=== PATIENT | male | born 1945 | race Caucasian/White ===

== ENCOUNTER 2019-10-07 06:00 | Outpatient (CLI) | payer MEDICARE, BC, SELFPAY ==
--- NOTE | 2019-10-09 12:05 | ONC CON_ITS ---
Dr. Mott New Patient Note Patient: Farhad Miller Unit #: [id number]: 1945 Dicatated By: Jhony Mott M.D.Date of Visit: Oct 07, 2019 Onc MED New Patient/Consult Referring Physician: Dr. BART KANG M.D. Chief Complaint: Anemia and leukopenia. History of Present Illness: This is a 74-year-old man with mild anemia and leukopenia. He has a history of having been treated for systemic lupus sometime back in the late . His other medical illnesses include hypertension, hyperlipidemia, chronic kidney disease, and mitral valve prolapse. He also has a history of nephrolithiasis. He had presented with multiple complaints including persistent sinus drainage and cough, shortness of breath, and weakness/fatigue, among others. His laboratory studies from 09/23/2019 included CBC showing hemoglobin 11.7 g with hematocrit 36.7%. The red cell indices were normal. The white blood cell count was low at 2700 with absolute neutrophil count 1600. Platelet count was 142,000. Comprehensive metabolic profile showed elevated BUN and creatinine at 30 and 1.28 mg/dL. Albumin was slightly low at 3.4 g/dL. Bilirubin and liver enzymes were normal. His repeat CBC on 09/29/2019 included serum iron low at 32 mcg/dL with transferrin saturation 14% and ferritin level significantly elevated at 1405 ng/mL. Protein electrophoresis showed inflammatory changes with no monoclonal protein detected. He has not been feeling good since at least June, with his main complaints being constant sinus drainage and cough. He actually thinks the illness may have started as far back as March, when he and his had traveled to [facility]. He says that he and his were both sick the whole time they were there. He seemed to have been getting better, but sometime in the latter part of June he began having the persistent, clear sinus drainage and nonproductive cough. The cough has been worse when he is lying flat. He complains of being very short of breath and weak. He says he mostly just sits around and sleeps. His ECOG score is 3. He complains of poor appetite. He says that everything tastes terrible. He is eating, though, and his weight thus far has been stable. He has not had fever. He has had chills and night sweating, at least 3 or 4 times a week. He says he has had a weird sore throat, and he has had pain in the left TM joint. He has not had chest pain. He sometimes coughs to the point that he vomits. He otherwise is not having nausea. He has had acid reflux. He has had no problems with bowel function. Tends to have small volume voids, but bladder function has otherwise been okay. He has chronic back pain. His hands tender get sore, particularly when he first gets up in the morning. He does not complain of headache. He sometimes gets dizzy or lightheaded. He has no focal neurologic symptoms. Past Medical History: His medical history includes benign prostatic hypertrophy, dyslipidemia, gastroesophageal reflux disease, history of nephrolithiasis, history of systemic lupus erythematosus, hyperlipidemia, hypertension, and mitral valve prolapse. Past Surgical History: His surgical/procedural history includes bilateral cataract excisions in 2019, left total knee arthroplasty in 2018, left hand surgery in 2016, right shoulder surgery for bone spur in 2013, arthroscopic left knee surgery in 2007, and lumbar spine surgery in 2001. Medications: Glucosamine-Chondroitin Tablet Oral b.i.d., hydroCHLOROthiazide (25 mg) Tablet Oral daily, Lovastatin (20 mg) Tablet Oral ac pm, Tamsulosin HCl 2 Tablet (of 0.4 mg) Capsule Oral daily, Turmeric (450 mg) Capsule Oral b.i.d. Allergies: No Known Allergies. Social History: Mr. Miller is . Mr. Miller quit smoking 25 years ago but had smoked 3.0 packs/day for 25 years. He is a former drinker. He is retired from the [employer]. He has a history of smoking for 25 years, up to 3 packs of cigarettes daily. He quit smoking in 1994. He does not drink alcohol. He has had some alcohol use in the past, but never heavy. Family History: Mr. Miller's father is . Father of lung cancer at age 65. Mother still living at age 93. She has diabetes. A brother and 2 sisters are in good health. Review Of Symptoms: Constitutional - His energy is very low. He is mostly in bed. He is appetite is poor but he is eating and he states his weight is stable. No fever. He is having chills and night sweating. ECOG score is 3, Eyes - He had recent cataract surgery, ENMT - He reports having hearing loss and tinnitus. He has some sinus congestion/drainage. No mouth sores. His throat has been sore and he's had some difficulty swallowing, Hematologic/Lymphatic - No abnormal bruising or bleeding, Respiratory - He has shortness of breath at rest and with activity. He has a cough, which is non-productive and worse when he is lying down. No pleuritic pain or hemoptysis, Cardiovascular - No angina pain. No palpitations, Gastrointestinal - No nausea or vomiting. No heartburn or acid reflux. No diarrhea or constipation. No blood in the stool or black stools, Genitourinary (M) - He has small volume voids, but no dysuria or hematuria, no urinary frequency, and no urgency or incontinence, Musculoskeletal - He has some joint pain, mainly in his hands, and he has chronic back pain, Integumentary - He has a skin eruption in the facial area, Neurologic - No headache. He has occasional episodes of dizziness. No numbness/paresthesias or other focal neurologic symptoms, Psychiatric - He has some hopelessness with his current health issues. He has difficulty sleeping. Vital Signs: Vital signs include blood pressure 131/59, pulse 67, respirations 18, temp 98.3 degrees, and oxygen saturation 93%. Height 71 inches with weight 185 pounds. Physical Examination: Constitutional - He appears somewhat weak generally, Eyes - Sclerae nonicteric. Conjunctivae clear, ENMT - No lesions noted in the oral cavity, Neck - No mass or thyromegaly, Hematologic/Lymphatic - No cervical, clavicular, or axillary adenopathy, Respiratory - Lungs sound clear. There is pretty good air movement bilaterally, Cardiovascular - Heart rhythm is regular. There is no murmur, gallop, or rub noted, Abdomen - Soft and non-tender. Liver and spleen are not enlarged. There is no abdominal mass or ascites noted and there is no inguinal adenopathy, Back/Spine - No spine or CVA tenderness noted, Extremities - No edema. Pedal pulses are palpable bilaterally, Integumentary - There is a mild skin eruption in the facial area. It appears consistent with seborrhea. There are no suspicious skin lesions noted, Neurologic - No focal neurologic deficits noted. Impression: 1. Patient with mild anemia and moderately severe leukopenia. The cause is uncertain. I suspect this may be a component of an inflammatory process, as he has a significantly elevated serum ferritin level in association with a normal transferrin saturation. Myelodysplastic syndrome but also be another consideration, and B12 deficiency also needs to be excluded. 2. He has persistent sinus drainage with nonproductive cough and shortness of breath. 3. He has multiple other nonspecific complaints including fatigue, dysguesia, and night sweating. 4. He has a history of having been treated for systemic lupus erythematosus in the late . His other medical illnesses include: 5. Hypertension. 6. Dyslipidemia. 7. Mitral valve prolapse. 8. GERD. 9. Benign prostatic hypertrophy. 10. History of nephrolithiasis. Plan: The laboratory findings and clinical implications were reviewed with the patient. The cause of the anemia and leukopenia is uncertain, but the significantly elevated serum ferritin and the normal transferrin saturation is suspicious for an underlying inflammatory process. At place initially I am going to obtain additional laboratory studies to include a repeat CBC and comprehensive metabolic profile along with sed rate, CRP level, SHERI screen, LDH level, B12 level, and repeat serum iron studies. As a precaution, I am going to go ahead and check an HFE gene analysis. I will schedule a CT pulmonary angiogram and a sinus CT study. He will have further evaluation as indicated. I suspect that he will need to be seen by a senior web developer. Signed By: Jhony Mott M.D. <<Signature on File>>
== END 2019-10-07 06:01 | disposition home or self-care (01) ==
LOC: ONCMED 13:49
PROVIDERS: Family Provider Nurse Practitioner Family; Visit Provider Internal Medicine Medical Oncology
DX: D64.9 Anemia, unspecified (principal); D72.819 Decreased white blood cell count, unspecified; R53.83 Other fatigue; R05 Cough; R06.02 Shortness of breath; I12.9 Hypertensive chronic kidney disease with stage 1 through stage 4 chronic kidney disease, or unspecified chronic kidney disease; E78.5 Hyperlipidemia, unspecified; N18.9 Chronic kidney disease, unspecified; I34.1 Nonrheumatic mitral (valve) prolapse; G89.29 Other chronic pain; M54.9 Dorsalgia, unspecified; N40.0 Benign prostatic hyperplasia without lower urinary tract symptoms; K21.9 Gastro-esophageal reflux disease without esophagitis; L21.9 Seborrheic dermatitis, unspecified; Z79.899 Other long term (current) drug therapy; Z96.652 Presence of left artificial knee joint; Z87.442 Personal history of urinary calculi; Z87.891 Personal history of nicotine dependence
CPT/HCPCS: 99205

== ENCOUNTER 2019-10-16 11:20 | Outpatient (CLI) | payer MEDICARE, BC, SELFPAY ==
[2019-10-16 15:24] LABS: Add Urine Microscopic? YES; Bilirubin Urine Neg (NEGATIVE); Blood Urine 2+ (Negative); Glucose Urine UA Norm (Normal); Ketones Urine Negative (Negative); Leukocyte Esterase Urine Negative (Negative); Nitrate Urine Negative (Negative); Protein Urine 3+ (Negative); Specific Gravity, Urine 1.025 (1.005-1.030); Urine Appearance Clear (CLEAR); Urine Color Yellow (Yellow); Urobilinogen Urine Norm (Negative); pH Urine 5 (5-7)
[2019-10-16 15:32] LABS: Eosinophils # 0.1 10^3/uL (0.0-0.8); Eosinophils % 2.2 %; Hematocrit 30.6 % (42.0-52.0); Hemoglobin 9.7 g/dL (11.7-16.6); Lymphocytes # 0.6 10^3/uL (0.8-4.8); Lymphocytes % 23.6 %; Mean Corpuscular HGB Conc 31.7 g/dL (30.0-36.0); Mean Corpuscular Hemoglobin 27.3 pg (28.0-34.0); Mean Corpuscular Volume 86.2 fL (80-94); Mean Platelet Volume 13.4 fL (7.4-10.4); Monocytes # 0.2 10^3/uL (0.2-0.9); Monocytes % 6.7 %; Neutrophils # 1.8 10^3/uL (1.8-7.7); Neutrophils % 67.1 %; Nucleated Red Blood Cells % 0 %; Platelet Count 101 10^3/cmm (130-400); Red Blood Count 3.55 10^6/uL (4.1-5.3); Red Cell Distribution Width 13.2 % (12.1-15.1); White Blood Count 2.7 10^3/uL (4.0-10.0)
[2019-10-16 15:54] LABS: Alanine Aminotransferase 23 U/L (0-41); Albumin Level 2.9 g/dL (3.5-5.2); Alkaline Phosphatase 71 IU/L (40-130); Anion Gap 15.7 (5-19); Aspartate Amino Transferase 35 U/L (0-40); Blood Urea Nitrogen 17 mg/dL (8-23); C Reactive Protein 35.4 mg/L (0.0-4.9); Calcium 8.9 mg/dL (8.5-10.5); Carbon Dioxide 24 mmol/L (22-29); Chloride 102 mmol/L (98-107); Globulin 2.6 g/dL (1.3-4.6); Glucose 75 mg/dL (65-115); Osmolality Calculated 281 mOsm/kg (285-295); Potassium 3.7 mmol/L (3.5-5.1); Sodium 138 mmol/L (136-145); Total Bilirubin 0.3 mg/dL (0.15-1.2); Total Protein 5.5 g/dL (6.6-8.7)
[2019-10-16 15:57] LABS: Urine Creatinine 475 mg/dL (39-259)
[2019-10-16 16:21] LABS: Urine Protein Random 205 mg/dL
[2019-10-16 16:29] LABS: Bacteria Urine 1+; RBC Urine 0-4 /hpf (0-2); Squamous Epithelial Cell Urine 0-4 (0-5); WBC Urine 0-4 /hpf (0-5)
[2019-10-16 16:30] LABS: Add Urine Culture? No; Hyaline Casts Urine 0-4; Other Casts Urine WBC CAST /lpf
[2019-10-16 16:47] LABS: Erythrocyte Sedimentation Rate 61 mm/hr (0-10)
[2019-10-17 09:26] LABS: COMPLEMENT, TOTAL (CH50) 59 U/mL (31-60)
[2019-10-17 11:17] LABS: COMPLEMENT COMPONENT C3C 81 mg/dL (82-185); COMPLEMENT COMPONENT C4C 17 mg/dL (15-53)
[2019-10-17 12:37] LABS: CENTROMERE B ANTIBODY <1.0 NEG AI (<1.0 NEG); JO-1 ANTIBODY <1.0 NEG AI (<1.0 NEG); RNP ANTIBODY <1.0 NEG AI (<1.0 NEG); SCL-70 ANTIBODY <1.0 NEG AI (<1.0 NEG); SJOGREN'S ANTIBODY (SS-A) <1.0 NEG AI (<1.0 NEG); SM ANTIBODY <1.0 NEG AI (<1.0 NEG)
[2019-10-17 13:07] LABS: THYROID PEROXIDASE ANTIBODIES <1 IU/mL (<9)
[2019-10-17 15:46] LABS: ANA PATTERN Nuclear, Homogeneous; ANA SCREEN, IFA POSITIVE (NEGATIVE); ANA TITER > OR = 1:1280 titer
[2019-10-20 00:15] LABS: DNA AB (DS) CRITHIDIA,IFA POSITIVE (NEGATIVE)
== END 2019-10-16 11:21 | disposition home or self-care (01) ==
LOC: ONCMED 16:08
PROVIDERS: Family Provider Nurse Practitioner Family; Visit Provider Internal Medicine Medical Oncology
DX: M32.9 Systemic lupus erythematosus, unspecified (principal); D64.9 Anemia, unspecified; D72.819 Decreased white blood cell count, unspecified
CPT/HCPCS: 80053; 81001; 82570; 84156; 85025; 85651; 86140

== ENCOUNTER 2019-11-19 10:43 | Outpatient (CLI) | payer MEDICARE, BC, SELFPAY ==
--- NOTE | 2019-11-19 10:51 | XR_ITS ---
WS: [id number] ELBOW RIGHT TECHNIQUE: 2 views of the right elbow CLINICAL INFORMATION: inflammatory arthritis COMPARISON: None. FINDINGS: Mild degenerative arthritis right elbow. No acute fractures. Mild hypertrophic spurring. Small olecra non enthesophyte. No significant joint effusion. XR/XR elbow RT 2V [id number] IMPRESSION: Mild degenerative arthritis right elbow. No significant joint effusion.
--- NOTE | 2019-11-19 10:51 | XR_ITS ---
WS: [id number] FOOT LEFT TECHNIQUE: 3 views of the left foot CLINICAL INFORMATION: inflammatory arthritis COMPARISON: None. FINDINGS: Mild osteopenia. Hammertoe deformities. Normal metatarsals. No acute fractures. A few small erosions involving the metatarsal heads. Joint space narrowing involving the PIP and DIP joints. XR/XR foot LT min 3V* [id number] IMPRESSION: A few small erosions involving the metatarsal heads.
--- NOTE | 2019-11-19 10:51 | XR_ITS ---
WS: [id number] HAND RIGHT TECHNIQUE: 3 views of the right hand CLINICAL INFORMATION: inflammatory arthritis COMPARISON: None. FINDINGS: Mild narrowing of the radiocarpal joint. Normal scaphoid and lunate. Degenerative arthritis the first CMC. Mild joint space narrowing involving the second and third MCP. A few small erosions involving t he metacarpal heads. XR/XR hand RT min 3V* [id number] IMPRESSION: Mild joint space narrowing involving the second and third MCP. A few small eros ions involving the metacarpal heads.
--- NOTE | 2019-11-19 10:51 | XR_ITS ---
WS: [id number] HAND LEFT TECHNIQUE: 3 views of the left hand CLINICAL INFORMATION: inflammatory arthritis COMPARISON: None. FINDINGS: Mild to moderate narrowing of the radiocarpal joint. Normal scaphoid and lunate. Degenerative arthrit is the first CMC and STT. Mild joint space narrowing involving the first MCP. Mild degenerative narro wing involving the second MCP. A few small erosions involving the metacarpal heads. XR/XR hand LT min 3V* [id number] IMPRESSION: A few small erosions involving the metacarpal heads worse involving the first second and third metacarpals.
--- NOTE | 2019-11-19 10:51 | XR_ITS ---
WS: [id number] FOOT RIGHT TECHNIQUE: 3 views of the right foot CLINICAL INFORMATION: inflammatory arthritis COMPARISON: None. FINDINGS: Mild osteopenia. Hammertoe deformities. Normal metatarsals. No acute fractures. A few small erosions involving the metatarsal heads. Joint space narrowing involving the PIP and DIP joints. Tiny Achilles insertion enthesophyte. XR/XR foot RT min 3V* [id number] IMPRESSION: A few small erosions involving the metatarsal heads. Tiny Achilles insertion en thesophyte.
== END 2019-11-19 10:44 | disposition home or self-care (01) ==
LOC: RADWPI 10:49
PROVIDERS: Family Provider Nurse Practitioner Family; PCP Physician Assistant Medical; Visit Provider Internal Medicine Rheumatology
DX: M32.9 Systemic lupus erythematosus, unspecified (principal); Z79.899 Other long term (current) drug therapy; M85.842 Other specified disorders of bone density and structure, left hand; M85.841 Other specified disorders of bone density and structure, right hand; M85.872 Other specified disorders of bone density and structure, left ankle and foot; M85.871 Other specified disorders of bone density and structure, right ankle and foot; M19.021 Primary osteoarthritis, right elbow
CPT/HCPCS: 36415; 73070; 73130; 73630; 80076; 81001; 82306; 82565; 82570; 84156; 85025; 85651; 86140; 86160

== ENCOUNTER → 2019-12-08 13:54 | Outpatient (BNVA) | payer MEDICARE, BC, SELFPAY | PROVIDERS: Family Provider Nurse Practitioner Family; PCP Physician Assistant Medical; Visit Provider Internal Medicine Rheumatology | DX: M32.9 Systemic lupus erythematosus, unspecified (principal); M32.19 Other organ or system involvement in systemic lupus erythematosus; Z79.899 Other long term (current) drug therapy; N18.3 Chronic kidney disease, stage 3 (moderate); M19.90 Unspecified osteoarthritis, unspecified site; D69.6 Thrombocytopenia, unspecified; D64.9 Anemia, unspecified; D72.810 Lymphocytopenia; Z79.52 Long term (current) use of systemic steroids | CPT/HCPCS: 99214 ==

== ENCOUNTER → 2020-01-12 10:37 | Outpatient (BNVA) | payer MEDICARE, BC, SELFPAY | PROVIDERS: Family Provider Nurse Practitioner Family; PCP Physician Assistant Medical; Visit Provider Internal Medicine | DX: Z79.899 Other long term (current) drug therapy (principal); M32.19 Other organ or system involvement in systemic lupus erythematosus | CPT/HCPCS: 36415; 80076; 81001; 82565; 82570; 83010; 83615; 84156; 85025; 85651 ==

== ENCOUNTER → 2020-03-01 09:43 | Outpatient (BNVA) | payer MEDICARE, BC, SELFPAY | PROVIDERS: Family Provider Nurse Practitioner Family; PCP Physician Assistant Medical; Visit Provider Internal Medicine Rheumatology | DX: Z79.899 Other long term (current) drug therapy (principal); M32.9 Systemic lupus erythematosus, unspecified | CPT/HCPCS: 36415; 80076; 81001; 82565; 82570; 84156; 85025; 85651; 86140 ==

== ENCOUNTER → 2020-03-15 09:52 | Outpatient (BNVA) | payer MEDICARE, BC, SELFPAY | PROVIDERS: Family Provider Nurse Practitioner Family; PCP Physician Assistant Medical; Visit Provider Internal Medicine Rheumatology | DX: M32.19 Other organ or system involvement in systemic lupus erythematosus (principal); Z79.899 Other long term (current) drug therapy; N18.3 Chronic kidney disease, stage 3 (moderate); R76.8 Other specified abnormal immunological findings in serum; M19.90 Unspecified osteoarthritis, unspecified site; D72.810 Lymphocytopenia; D64.9 Anemia, unspecified; D69.6 Thrombocytopenia, unspecified; Z79.52 Long term (current) use of systemic steroids; M32.9 Systemic lupus erythematosus, unspecified | CPT/HCPCS: 99214 ==

== ENCOUNTER → 2020-06-02 10:02 | Outpatient (BNVA) | payer MEDICARE, BC, SELFPAY | PROVIDERS: Family Provider Nurse Practitioner Family; PCP Physician Assistant Medical; Visit Provider Internal Medicine Rheumatology | DX: M32.19 Other organ or system involvement in systemic lupus erythematosus (principal); Z79.899 Other long term (current) drug therapy | CPT/HCPCS: 36415; 80076; 81001; 82565; 82570; 84156; 85025; 85651; 86140; 87086 ==

== ENCOUNTER → 2020-07-05 11:21 | Outpatient (BNVA) | payer MEDICARE, BC, SELFPAY | PROVIDERS: Family Provider Nurse Practitioner Family; PCP Physician Assistant Medical; Visit Provider Internal Medicine Rheumatology | DX: M32.19 Other organ or system involvement in systemic lupus erythematosus (principal); M19.90 Unspecified osteoarthritis, unspecified site; Z79.899 Other long term (current) drug therapy; N18.30 Chronic kidney disease, stage 3 unspecified; D64.9 Anemia, unspecified; Z87.891 Personal history of nicotine dependence | CPT/HCPCS: 99214 ==

== ENCOUNTER → 2020-10-06 08:37 | Outpatient (BNVA) | payer MEDICARE, BC, SELFPAY | PROVIDERS: Family Provider Nurse Practitioner Family; PCP Physician Assistant Medical; Referring Provider Internal Medicine Nephrology; Visit Provider Urology | DX: Z12.5 Encounter for screening for malignant neoplasm of prostate (principal); R33.9 Retention of urine, unspecified; N40.1 Benign prostatic hyperplasia with lower urinary tract symptoms; R35.1 Nocturia; R30.0 Dysuria; N18.30 Chronic kidney disease, stage 3 unspecified | CPT/HCPCS: 81003; G0103 ==

== ENCOUNTER → 2020-11-23 10:45 | Outpatient (BNVA) | payer MEDICARE, BC, SELFPAY | PROVIDERS: Family Provider Nurse Practitioner Family; PCP Physician Assistant Medical; Visit Provider Internal Medicine Rheumatology | DX: M32.19 Other organ or system involvement in systemic lupus erythematosus (principal); R76.8 Other specified abnormal immunological findings in serum; Z79.899 Other long term (current) drug therapy; M19.90 Unspecified osteoarthritis, unspecified site; Z87.891 Personal history of nicotine dependence | CPT/HCPCS: 99214 ==

== ENCOUNTER → 2021-01-06 10:23 | Outpatient (BNVA) | payer MEDICARE, BC, SELFPAY | PROVIDERS: Family Provider Nurse Practitioner Family; PCP Physician Assistant Medical; Visit Provider Urology | DX: N40.1 Benign prostatic hyperplasia with lower urinary tract symptoms (principal) | CPT/HCPCS: 81003 ==

== ENCOUNTER → 2021-03-23 13:52 | Outpatient (BNVA) | payer MEDICARE, BC, SELFPAY | PROVIDERS: Family Provider Nurse Practitioner Family; PCP Physician Assistant Medical; Visit Provider Internal Medicine Rheumatology | DX: M32.19 Other organ or system involvement in systemic lupus erythematosus (principal); R76.8 Other specified abnormal immunological findings in serum; Z79.899 Other long term (current) drug therapy | CPT/HCPCS: 36415; 80076; 81001; 82565; 82570; 84156; 85025; 86140; 86160 ==

== ENCOUNTER → 2021-03-31 09:26 | Outpatient (BNVA) | payer MEDICARE, BC, SELFPAY | PROVIDERS: Family Provider Nurse Practitioner Family; PCP Physician Assistant Medical; Visit Provider Internal Medicine Rheumatology | DX: M32.19 Other organ or system involvement in systemic lupus erythematosus (principal); Z79.899 Other long term (current) drug therapy; M19.90 Unspecified osteoarthritis, unspecified site; Z71.89 Other specified counseling; Z87.891 Personal history of nicotine dependence | CPT/HCPCS: 99214 ==

== ENCOUNTER → 2021-07-12 10:56 | Outpatient (BNVA) | payer MEDICARE, BC, SELFPAY | PROVIDERS: Family Provider Nurse Practitioner Family; PCP Physician Assistant Medical; Visit Provider Internal Medicine Rheumatology | DX: M32.19 Other organ or system involvement in systemic lupus erythematosus (principal); Z79.899 Other long term (current) drug therapy | CPT/HCPCS: 80076; 81003; 82565; 82570; 84156; 85025; 86140 ==

== ENCOUNTER → 2021-07-26 13:30 | Outpatient (BNVA) | payer MEDICARE, BC, SELFPAY | PROVIDERS: Family Provider Nurse Practitioner Family; PCP Physician Assistant Medical; Visit Provider Internal Medicine Rheumatology | DX: M32.19 Other organ or system involvement in systemic lupus erythematosus (principal); D69.6 Thrombocytopenia, unspecified; Z79.899 Other long term (current) drug therapy; M19.90 Unspecified osteoarthritis, unspecified site; Z71.89 Other specified counseling; Z87.891 Personal history of nicotine dependence | CPT/HCPCS: 99214 ==

== ENCOUNTER → 2021-10-12 10:29 | Outpatient (BNVA) | payer MEDICARE, BC, SELFPAY | PROVIDERS: Family Provider Nurse Practitioner Family; PCP Physician Assistant Medical; Visit Provider Internal Medicine Rheumatology | DX: M32.19 Other organ or system involvement in systemic lupus erythematosus (principal); Z79.899 Other long term (current) drug therapy | CPT/HCPCS: 80076; 82565; 85025; 86140 ==

== ENCOUNTER 2021-11-30 13:42 | Outpatient (CLI) | payer MEDICARE, BC, SELFPAY ==
--- NOTE | 2021-11-30 13:52 | USCV_ITS ---
Farhad Miller Age: 76 Gender: M : 1945 Exam Date: 11/30/2021 14:15 Ordering Phys: Lucille Melendez Technologist: Maxx Dukes [place]am [place] [facility] [place]: SOB, CHEST DISCOMFORT, MITRAL VALVE DISEASE BP: 150 / 82 HR: 57 Rhythm: Sinus Technical Quality: Adequate MEASUREMENTS (Male / Female) Normal Values 2D ECHO LV Diastolic Diameter PLAX 3.8 cm 4.2 - 5.9 / 3.9 - 5.3 cm LV Systolic Diameter PLAX 2.4 cm IVS Diastolic Thickness 1.2 cm 0.6 - 1.0 / 0.6 - 0.9 cm IVS Systolic Thickness 1.1 cm LVPW Diastolic Thickness 1.1 cm 0.6 - 1.0 / 0.6 - 0.9 cm LVPW Systolic Thickness 1.5 cm LVOT Diameter 2.0 cm LV Ejection Fraction 2D Teich 66.6 % LV Ejection Fraction MOD 2C 63.0 % LV Ejection Fraction 2C AL 63.4 % LA Diameter 3.1 cm LA Width 3.3 cm LA Height 3.4 cm RA Width 2.4 cm RA Height 3.5 cm Aorta at Sinotubular Diameter 2.5 cm M-MODE Aortic Annulus Diameter 3.2 cm LA Ao Ratio MM 1.0 MV E Point Septal Separation 0.7 cm DOPPLER AV Peak Velocity 113.0 cm/s LVOT Peak Velocity 84.0 cm/s AV Area Cont Eq vti 2.4 cm squared AV Area Cont Eq pk 2.3 cm squared MV Peak Velocity 128.0 cm/s MV Area PHT 3.1 cm squared Mitral E to A Ratio 0.7 MV E' Velocity 38.5 cm/s Mitral E to MV E' Ratio 9.2 Mitral E to LV E' Lateral Ratio 8.7 Mitral E to LV E' Septal Ratio 10.0 TR Peak Velocity 220.9 cm/s TR Peak Gradient 19.5 mmHg TR Mean Velocity 168.2 cm/s TR Mean Gradient 11.8 mmHg TR Velocity Time Integral 70.1 cm Right Atrial Pressure 8.0 mmHg Pulmonary Artery Systolic Pressu 27.5 mmHg RV Acceleration Time 0.1 s RV Ejection Time 0.3 s RV AcT/ET 0.5 FINDINGS Left Ventricle Normal left ventricular size and systolic function, EF 63 %. No regional wall motion abnormalities. Mild left ventricular hypertrophy. Grade I/IV diastolic dysfunction (abnormal relaxation filling pattern), normal to mildly elevated filling pressures. Right Ventricle The right ventricle is normal in size and function. Right Atrium The right atrium is normal in size. Left Atrium The left atrium is normal in size. Mitral Valve Thickened mitral valve. Trace to mild mitral valve regurgitation. No obvious pleural Aortic Valve Thickened aortic valve. Trace to mild aortic valve regurgitation. Tricuspid Valve Mild tricuspid valve regurgitation. Estimated pulmonary artery peak systolic pressure was 28 mmHg Pulmonic Valve No gross abnormalities noted Pericardium Normal pericardium without effusion. Aorta Normal ascending aorta dimension. CONCLUSIONS Normal left ventricular size and systolic function, EF 63 %. No regional wall motion abnormalities. Mild left ventricular hypertrophy. Grade I/IV diastolic dysfunction (abnormal relaxation filling pattern), normal to mildly elevated filling pressures. Thickened mitral valve. Trace to mild mitral valve regurgitation. No obvious mitral valve prolapse Thickened aortic valve. Trace to mild aortic valve regurgitation. There is no pericardial effusion. There are no intracardiac masses. No similar previous studies are available for comparison Dr Praful Park MD FACC (Electronically Signed) Final Date: 01 Dec 2021 07:43 S
== END 2021-11-30 13:43 | disposition home or self-care (01) ==
LOC: RAD 13:46
PROVIDERS: PCP Registered Nurse; Visit Provider Registered Nurse
DX: I08.0 Rheumatic disorders of both mitral and aortic valves (principal)
CPT/HCPCS: 93306

== ENCOUNTER 2021-12-06 10:05 | Outpatient (CLI) | payer MEDICARE, BC, SELFPAY ==
[2021-12-06 10:37] VITALS: BMI 25.7
--- NOTE | 2021-12-06 10:42 | ECG_ITS ---
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 Interpretive Statements NAME OF STUDY: LEXISCAN SESTAMIBI STRESS TEST INDICATION: Shortness of Breath PROCEDURE: At the baseline, the blood pressure was 131/85 mmHg, oxygen saturation 96% with a heart rate of 50 bpm. The electrocardiogram showed sinus bradycardia with first-degree AV block. Possible old septal infarct. The Lexiscan was infused over a period of 20 seconds. A total of 0.4 milligrams of Lexiscan was infused. The stress phase was continued for a total of 5 minutes. Heart rate at the end of the stress phase was 72 bpm, oxygen saturation 98% with a blood pressure of 110/69 mmHg. The EKG at the peak infusion revealed sinus rhythm with no significant ST-T wave changes. Sestamibi was injected 20 seconds after the Lexiscan infusion. Blood pressure at the end of the recovery phase was 110/75 mmHg, oxygen saturation 97% with a heart rate of 62 beats per minute. CONCLUSION: 1. No significant EKG changes with the LexiScan infusion. 2. No LexiScan induced chest pain or cardiac arrhythmia. 3. Normal blood pressure and heart rate response. 4. Sestamibi/sestamibi perfusion scan pending; see separate report. Electronically Signed On 12-06-2021 17:07:40 CDT by Lexy Hamilton M.D. [id number]
--- NOTE | 2021-12-06 10:42 | NMCV_ITS ---
NM rufus perf SPECT r/s* [id number] Farhad Miller Age: 76 Gender: M : 1945 Exam Date: 12/06/2021 10:42 Ordering Phys: Lucille Melendez Technologist: LYNDON Condon Exam Location: [facility] Indications: CHEST PAIN STRESS TEST [facility] IMAGE PROTOCOL Rest/Stress 1 Lexiscan Day Radiopharmaceutical Dose (mCi) Administration Site Administered by Rest: Tc-99m 10.6 IV LYNDON Romeo Sestamibi Stress:Tc-99m 32.9 IV LYNDON Condon Sestamisnow Rest: 06-Dec-2021 60 Discovery 630 Stress: 06-Dec-2021 30 Discovery 630 0.4mg Lexiscan. Supine position only as patient was unable to lay prone. SPECT RESULTS Technical Quality: Good Raw Data Analysis: Normal Image Corrections: Patient motion artifact - motion correction applied Summed Stress Score: 0 Summed Rest Score: 0 Summed Difference Score: 0 PERFUSION FINDINGS SPECT images demonstrate homogeneous tracer distribution throughout the myocardium. FUNCTIONAL RESULTS (calculated via Gated SPECT) Stress Image LV EF (%): 74 Stress EDV (mL):80 TID: 0.92 Stress ESV (mL):21 FUNCTIONAL FINDINGS: The left ventricle is normal in size. Transient Ischemia Dilatation of 0.92. There is normal left ventricular systolic function. The left ventricular ejection fraction is normal with a value of 74%. There is normal left ventricular wall thickening with no regional wall motion abnormality. Normal end-diastolic end-systolic volumes. IMPRESSIONS 1. Myocardial perfusion imaging is normal. 2. Overall left ventricular systolic function is normal without regional wall motion abnormalities. 3. The left ventricular ejection fraction is normal with a value of 74%. 4. Scan indicates low risk for cardiac events. Lexy Hamilton MD (Electronically Signed) Final Date: 06 Dec 2021 17:04 S
[2021-12-06] MEDS: regadenoson 0.4 Mg/5 ml Syringe IVP (12:26)
[2021-12-06 13:07] VITALS: BP 111/67; PULSE 51
== END 2021-12-06 10:06 | disposition home or self-care (01) ==
LOC: CDL 10:08
PROVIDERS: PCP Registered Nurse; Visit Provider Registered Nurse
DX: R06.02 Shortness of breath (principal); R07.89 Other chest pain; I05.9 Rheumatic mitral valve disease, unspecified; I44.0 Atrioventricular block, first degree
CPT/HCPCS: 78452; 93017; A9500; J2785

== ENCOUNTER → 2022-01-19 09:01 | Outpatient (BNVA) | payer MEDICARE, BC, SELFPAY | PROVIDERS: PCP Registered Nurse; Visit Provider Internal Medicine Rheumatology | DX: M32.19 Other organ or system involvement in systemic lupus erythematosus (principal); Z79.899 Other long term (current) drug therapy | CPT/HCPCS: 80076; 82565; 85025; 86140 ==

== ENCOUNTER → 2022-01-25 13:12 | Outpatient (BNVA) | payer MEDICARE, BC, SELFPAY | PROVIDERS: PCP Registered Nurse; Visit Provider Internal Medicine Rheumatology | DX: M32.19 Other organ or system involvement in systemic lupus erythematosus (principal); D69.6 Thrombocytopenia, unspecified; Z79.899 Other long term (current) drug therapy; D64.9 Anemia, unspecified; D72.819 Decreased white blood cell count, unspecified; D72.810 Lymphocytopenia; N28.9 Disorder of kidney and ureter, unspecified; R31.9 Hematuria, unspecified; R80.9 Proteinuria, unspecified; Z71.89 Other specified counseling | CPT/HCPCS: 99214 ==

== ENCOUNTER → 2022-03-28 08:58 | Outpatient (BNVA) | payer MEDICARE, BC, SELFPAY | PROVIDERS: PCP Registered Nurse; Visit Provider Student in an Organized Health Care Education/Training Program | DX: T84.033A Mechanical loosening of internal left knee prosthetic joint, initial encounter (principal); Y79.2 Prosthetic and other implants, materials and accessory orthopedic devices associated with adverse incidents; M25.562 Pain in left knee; M19.90 Unspecified osteoarthritis, unspecified site | CPT/HCPCS: 36415; 73560; 73565; 85025; 85651; 86140; 99204 ==

== ENCOUNTER → 2022-05-03 08:45 | Outpatient (BNVA) | payer MEDICARE, BC, SELFPAY | PROVIDERS: PCP Registered Nurse; Visit Provider Internal Medicine Rheumatology | DX: M32.19 Other organ or system involvement in systemic lupus erythematosus (principal); Z79.899 Other long term (current) drug therapy; M32.9 Systemic lupus erythematosus, unspecified; M19.90 Unspecified osteoarthritis, unspecified site | CPT/HCPCS: 80076; 81003; 82565; 82570; 84156; 85025; 86140 ==

== ENCOUNTER 2022-05-15 08:13 | Outpatient (CLI) | payer MEDICARE, BC, SELFPAY ==
--- NOTE | 2022-05-15 08:20 | NM_ITS ---
WS: [id number] THREE-PHASE BONE SCAN HISTORY: rule out infection, LEFT knee arthroplasty with pain. COMPARISON: Radiograph 03/28/2022 Patient is is injected with 25.4 mCi Tc99m HDP intravenously. Immediate angiographic phase imaging is performed over the area of concern. Static blood pool imaging also performed. Two-hour whole-body sc intigrams performed in anterior and posterior projections. Additional large field of view imaging sub mitted as necessary. Angiographic phase and blood pool phase images are normal. No increased uptake. On the delayed imaging there is only intermediate uptake along the LEFT tibial plateau at the site of the prosthetic device. There is moderate increased uptake involving the RIGHT patella. May all be degenerative. The LEFT pat rhonda is very slightly high riding as also seen on the radiographs. Normal soft tissue uptake. Normal renal uptake. NM/NM bone 3 phase [id number] IMPRESSION: 1. No evidence for osteomyelitis or cellulitis. 2. Very minimal increased uptake along the LEFT tibial plateau and prosthetic device interface. Early loosening is a consideration. 3. Moderate increased uptake involving the RIGHT patella is probably all degen erative.
== END 2022-05-15 08:14 | disposition home or self-care (01) ==
LOC: RAD 08:17
PROVIDERS: PCP Registered Nurse; Visit Provider Student in an Organized Health Care Education/Training Program
DX: T84.033A Mechanical loosening of internal left knee prosthetic joint, initial encounter (principal)
CPT/HCPCS: 78315; A9561

== ENCOUNTER → 2022-05-16 12:22 | Outpatient (BNVA) | payer MEDICARE, BC, SELFPAY | PROVIDERS: PCP Registered Nurse; Visit Provider Internal Medicine Rheumatology | DX: M32.19 Other organ or system involvement in systemic lupus erythematosus (principal); M19.90 Unspecified osteoarthritis, unspecified site; Z71.89 Other specified counseling; Z79.899 Other long term (current) drug therapy; R76.8 Other specified abnormal immunological findings in serum; I34.1 Nonrheumatic mitral (valve) prolapse | CPT/HCPCS: 99214 ==

== ENCOUNTER → 2022-08-24 08:29 | Outpatient (BNVA) | payer MEDICARE, SELFPAY | PROVIDERS: PCP Registered Nurse; Visit Provider Internal Medicine Rheumatology | DX: M32.19 Other organ or system involvement in systemic lupus erythematosus (principal); Z79.899 Other long term (current) drug therapy; M32.9 Systemic lupus erythematosus, unspecified | CPT/HCPCS: 80076; 81003; 82565; 82570; 84156; 85025; 86140 ==

== ENCOUNTER → 2022-08-29 13:12 | Outpatient (BNVA) | payer MEDICARE, SELFPAY | PROVIDERS: PCP Registered Nurse; Visit Provider Internal Medicine Rheumatology | DX: M32.19 Other organ or system involvement in systemic lupus erythematosus (principal); Z79.899 Other long term (current) drug therapy; M19.90 Unspecified osteoarthritis, unspecified site; Z71.89 Other specified counseling; R21 Rash and other nonspecific skin eruption; R76.8 Other specified abnormal immunological findings in serum; I34.1 Nonrheumatic mitral (valve) prolapse | CPT/HCPCS: 99214 ==

== ENCOUNTER → 2023-02-21 09:39 | Outpatient (BNVA) | payer MEDICARE, SELFPAY | PROVIDERS: PCP Registered Nurse; Visit Provider Internal Medicine Rheumatology | DX: M32.9 Systemic lupus erythematosus, unspecified (principal); Z79.899 Other long term (current) drug therapy | CPT/HCPCS: 80076; 81003; 82565; 82570; 84156; 85025; 86140 ==

== ENCOUNTER → 2023-02-27 12:35 | Outpatient (BNVA) | payer MEDICARE, SELFPAY | PROVIDERS: PCP Family Medicine; Visit Provider Internal Medicine Rheumatology | DX: Z79.899 Other long term (current) drug therapy (principal); M32.19 Other organ or system involvement in systemic lupus erythematosus; M19.90 Unspecified osteoarthritis, unspecified site; Z71.89 Other specified counseling; R21 Rash and other nonspecific skin eruption; I34.1 Nonrheumatic mitral (valve) prolapse | CPT/HCPCS: 99214 ==

== ENCOUNTER → 2023-06-05 09:35 | Outpatient (BNVA) | payer MEDICARE, SELFPAY | PROVIDERS: PCP Family Medicine; Visit Provider Internal Medicine Rheumatology | DX: M32.9 Systemic lupus erythematosus, unspecified (principal); Z79.899 Other long term (current) drug therapy | CPT/HCPCS: 80076; 82565; 85025; 86140 ==

== ENCOUNTER → 2023-08-08 08:58 | Outpatient (BNVA) | payer MEDICARE, SELFPAY | PROVIDERS: PCP Family Medicine; Visit Provider Internal Medicine Rheumatology | DX: Z79.899 Other long term (current) drug therapy (principal); M32.19 Other organ or system involvement in systemic lupus erythematosus; M19.90 Unspecified osteoarthritis, unspecified site | CPT/HCPCS: 80076; 82565; 85025; 86140 ==

== ENCOUNTER → 2023-08-28 12:40 | Outpatient (BNVA) | payer MEDICARE, SELFPAY | PROVIDERS: PCP Registered Nurse; Visit Provider Internal Medicine Rheumatology | DX: M32.19 Other organ or system involvement in systemic lupus erythematosus (principal); Z79.899 Other long term (current) drug therapy; M19.90 Unspecified osteoarthritis, unspecified site; Z71.89 Other specified counseling; R21 Rash and other nonspecific skin eruption; R29.898 Other symptoms and signs involving the musculoskeletal system | CPT/HCPCS: 36415; 80076; 82085; 82550; 82565; 85025; 85651; 86140; 99214 ==

== ENCOUNTER → 2023-12-11 13:06 | Outpatient (BNVA) | payer MEDICARE, SELFPAY | PROVIDERS: PCP Registered Nurse; Visit Provider Internal Medicine Rheumatology | DX: Z79.899 Other long term (current) drug therapy (principal); M32.19 Other organ or system involvement in systemic lupus erythematosus; M19.90 Unspecified osteoarthritis, unspecified site; Z71.89 Other specified counseling; R21 Rash and other nonspecific skin eruption | CPT/HCPCS: 36415; 80076; 82565; 85025; 85651; 86140; 99214 ==

== ENCOUNTER → 2024-04-22 14:14 | Outpatient (BNVA) | payer MEDICARE, SELFPAY | PROVIDERS: PCP Registered Nurse; Visit Provider Internal Medicine Rheumatology | DX: M32.19 Other organ or system involvement in systemic lupus erythematosus (principal); M19.90 Unspecified osteoarthritis, unspecified site; Z79.899 Other long term (current) drug therapy; Z71.85 Encounter for immunization safety counseling; R21 Rash and other nonspecific skin eruption; L97.512 Non-pressure chronic ulcer of other part of right foot with fat layer exposed | CPT/HCPCS: 36415; 80076; 85025; 85651; 86140; 99214 ==

== ENCOUNTER → 2024-06-04 13:48 | Outpatient (BNVA) | payer MEDICARE, SELFPAY | PROVIDERS: PCP Registered Nurse; Visit Provider Nurse Practitioner Family | DX: D22.5 Melanocytic nevi of trunk (principal); L30.9 Dermatitis, unspecified; D48.5 Neoplasm of uncertain behavior of skin; L57.0 Actinic keratosis | CPT/HCPCS: 11102; 17000; 99204 ==

== ENCOUNTER → 2024-06-13 09:43 | Outpatient (BNVA) | payer MEDICARE, SELFPAY | PROVIDERS: PCP Registered Nurse; Visit Provider Student in an Organized Health Care Education/Training Program | DX: M25.561 Pain in right knee (principal); M17.11 Unilateral primary osteoarthritis, right knee | CPT/HCPCS: 73560; 73565; 99213 ==

== ENCOUNTER → 2024-07-04 09:35 | Outpatient (BNVA) | payer MEDICARE, SELFPAY | PROVIDERS: PCP Registered Nurse; Visit Provider Dermatology | DX: C44.319 Basal cell carcinoma of skin of other parts of face (principal); L57.0 Actinic keratosis | CPT/HCPCS: 14041; 17000; 17311 ==

== ENCOUNTER → 2024-07-07 09:32 | Outpatient (BNVA) | payer MEDICARE, SELFPAY | PROVIDERS: PCP Registered Nurse; Visit Provider Dermatology | DX: C44.311 Basal cell carcinoma of skin of nose (principal) | CPT/HCPCS: 13152; 17311 ==

== ENCOUNTER → 2024-09-25 09:59 | Outpatient (BNVA) | payer MEDICARE, SELFPAY | PROVIDERS: PCP Registered Nurse; Visit Provider Internal Medicine Rheumatology | DX: Z79.899 Other long term (current) drug therapy (principal); M32.19 Other organ or system involvement in systemic lupus erythematosus | CPT/HCPCS: 80076; 82565; 85025; 85651; 86140; 86160 ==

== ENCOUNTER → 2024-10-21 10:59 | Outpatient (BNVA) | payer MEDICARE, SELFPAY | PROVIDERS: PCP Registered Nurse; Visit Provider Internal Medicine Rheumatology | DX: M32.19 Other organ or system involvement in systemic lupus erythematosus (principal); Z79.899 Other long term (current) drug therapy; M19.90 Unspecified osteoarthritis, unspecified site; Z71.89 Other specified counseling; R21 Rash and other nonspecific skin eruption | CPT/HCPCS: 99214 ==

== ENCOUNTER → 2024-11-13 11:30 | Outpatient (BNVA) | payer MEDICARE, SELFPAY | PROVIDERS: PCP Registered Nurse; Visit Provider Nurse Practitioner Family | DX: L57.8 Other skin changes due to chronic exposure to nonionizing radiation (principal); L81.4 Other melanin hyperpigmentation; D22.39 Melanocytic nevi of other parts of face; Z08 Encounter for follow-up examination after completed treatment for malignant neoplasm; Z85.828 Personal history of other malignant neoplasm of skin; L57.0 Actinic keratosis | CPT/HCPCS: 17000; 99213 ==

== ENCOUNTER 2025-02-10 10:40 | Outpatient (CLI) | payer MEDICARE, SELFPAY ==
[2025-02-10 12:23] LABS: Hematocrit 42.7 % (37-53); Hemoglobin 14.30 g/dL (11.27-16.99); Mean Corpuscular HGB Conc 33.5 g/dL (30-55); Mean Corpuscular Hemoglobin 30.5 pg (27-33); Mean Corpuscular Volume 91.0 fl (82-101); Nucleated Red Blood Cells % 0 %; Platelet Count 114 10^3/cmm (157-399); Red Blood Count 4.69 10^6/uL (3.85-5.65); White Blood Count 4.37 10^3/uL (3.29-11.43)
[2025-02-10 12:49] LABS: Alanine Aminotransferase 41 U/L (0-41); Albumin Level 4.1 g/dL (3.5-5.2); Alkaline Phosphatase 54 U/L (40-130); Aspartate Amino Transferase 36 U/L (0-40); Globulin 2.3 g/dL (1.3-4.6); Total Protein 6.4 g/dL (6.6-8.7)
== END 2025-02-10 10:41 | disposition home or self-care (01) ==
PROVIDERS: PCP Registered Nurse; Visit Provider Internal Medicine Rheumatology
DX: Z79.899 Other long term (current) drug therapy (principal)
CPT/HCPCS: 36415; 80076; 82565; 85025; 85651; 86140

== ENCOUNTER → 2025-04-07 11:05 | Outpatient (BNVA) | payer MEDICARE, SELFPAY | PROVIDERS: PCP Registered Nurse; Visit Provider Student in an Organized Health Care Education/Training Program | DX: M25.561 Pain in right knee (principal); M17.11 Unilateral primary osteoarthritis, right knee; M71.22 Synovial cyst of popliteal space [Baker], left knee | CPT/HCPCS: 20610; 73560; 73565; 99213; J3301; J9999 ==

== ENCOUNTER → 2025-06-29 12:30 | Outpatient (BNVA) | payer MEDICARE, SELFPAY | PROVIDERS: PCP Registered Nurse; Visit Provider Internal Medicine Rheumatology | DX: M32.10 Systemic lupus erythematosus, organ or system involvement unspecified (principal); M13.80 Other specified arthritis, unspecified site; Z71.85 Encounter for immunization safety counseling; Z79.899 Other long term (current) drug therapy; R21 Rash and other nonspecific skin eruption | CPT/HCPCS: 99214 ==

== ENCOUNTER → 2025-07-02 09:18 | Outpatient (BNVA) | payer MEDICARE, SELFPAY | PROVIDERS: PCP Registered Nurse; Visit Provider Internal Medicine Rheumatology | DX: Z79.899 Other long term (current) drug therapy (principal); M32.19 Other organ or system involvement in systemic lupus erythematosus | CPT/HCPCS: 80076; 82565; 85025; 85651; 86140 ==

== ENCOUNTER → 2025-07-08 09:26 | Outpatient (BNVA) | payer MEDICARE, SELFPAY | PROVIDERS: PCP Registered Nurse; Visit Provider Student in an Organized Health Care Education/Training Program | DX: M17.11 Unilateral primary osteoarthritis, right knee (principal) | CPT/HCPCS: 99213 ==